=== PATIENT | female | born 1990 | race Caucasian/White ===

== ENCOUNTER 2022-08-14 12:20 | Outpatient (CLI) | payer BC, SELFPAY ==
--- NOTE | 2022-08-14 14:53 | DI.RAD_ITS ---
Exam(s) XR CHEST 2V PA LATERAL EXAM: XR CHEST 2V PA LATERAL CLINICAL HISTORY: COUGH--R05.8, ENSURE NO SIGNS OF PNEUMONIA. TECHNIQUE: 2D digital imaging was performed. COMPARISON: No exams were available for comparison FINDINGS: 2 views: Heart size is normal. The mediastinum is not widened. Lungs are clear. No infiltrates nor pleural effusions. IMPRESSION: No acute pulmonary findings. DATA REPOSITORY: RADIATION DOSE DELIVERED:
== END 2022-08-14 12:40 ==
PROVIDERS: Visit Provider Physician Assistant Medical
DX: R05.9 Cough, unspecified (principal)
CPT/HCPCS: 71046

== ENCOUNTER 2022-08-14 21:04 | Outpatient (REF) | payer BC, SELFPAY ==
[2022-08-16 10:36] LABS: COVID-19 RT-PCR UVMMC Result Negative (Negative)
== END 2022-08-14 21:05 | disposition home or self-care (01) ==
LOC: LBN 21:04
PROVIDERS: Visit Provider Physician Assistant Medical
DX: Z20.822 Contact with and (suspected) exposure to COVID-19 (principal); R05.8 Other specified cough
CPT/HCPCS: U0003

== ENCOUNTER 2024-03-23 09:49 | Emergency (ER) | payer OTHER, SELFPAY ==
[2024-03-23 09:57] VITALS: BP 124/65; PULSE 73; RESP 16; TEMP 36.7; O2SAT 98
--- NOTE | 2024-03-23 10:15 | DI.RAD_ITS ---
Exam(s) XR CHEST 2V PA LATERAL EXAM: XR CHEST 2V PA LATERAL CLINICAL HISTORY: right upper back pain, pain with deep breath. TECHNIQUE: 2D digital imaging was performed. COMPARISON: CR XR CHEST 2V PA LATERAL from 08/14/2022 FINDINGS: 2 views: Heart size is normal. The mediastinum is not widened. Lungs are clear. No infiltrates nor pleural effusions. IMPRESSION: No acute pulmonary findings.No significant change compared to 08/14/2022. DATA REPOSITORY: RADIATION DOSE DELIVERED:
--- NOTE | 2024-03-23 10:22 | W.ED.GENAD ---
Discharge Plan Disposition Patient Disposition: Home Condition: Improving Discharge Details Clinical Impression: Back strain Primary Care Provider: None,None ED Provider: Shaji Zhu Home Meds and New Rx's Prescriptions: New lidocaine [Lidoderm] 5 % adhesive patch,medicated 1 patch topical DAILY Qty: 15 0RF Rx Instructions: leave on most painful area for up to 12 hrs No Action naproxen 500 MG tablet 500 mg PO Q12H PRNQty: 20 0RF Discharge Instructions Instructions: Back Pain (ED) HPI General Date/Time Provider Initiated Documentation: 03/23/24 09:53. 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 Denies shortness of breath chest pain nausea vomiting or leg swelling. No exogenous estrogen use. No history of coronary artery disease or thromboembolic disease. Related Data Home Medications Medication Instructions Recorded Confirmed naproxen 500 mg tablet 500 mg PO Q12H PRN #20 tabs 04/23/13 lidocaine 5 % topical patch 1 patch topical DAILY #15 ea 03/23/24 (Lidoderm) Previous Rx's Medication Instructions Recorded naproxen 500 mg tablet 500 mg PO Q12H PRN #20 tabs 04/23/13 lidocaine 5 % topical patch 1 patch topical DAILY #15 ea 03/23/24 (Lidoderm) Allergies Allergy/AdvReac Type Severity Reaction Status Date / Time cetirizine HCl [From Zyrtec] Allergy Severe Hives Unverified 04/23/13 08:34 Penicillins Allergy Severe Anaphylaxsi Unverified 04/23/13 08:34 s Sulfa (Sulfonamide Allergy Intermediate Hives Unverified 04/23/13 08:34 Antibiotics) General Stated Complaint: Nk/Back Pain ANAI: 4 Review of Systems Narrative: Review of Systems Constitutional: negative Eyes: negative ENT: negative Cardiovascular: negative Respiratory: negative Gastrointestinal: negative : negative Musculoskeletal: Back pain Skin: negative Neurologic: negative Psych: negative Exam Narrative Exam Narrative: Physical Examination General: alert, awake, cooperative, resting comfortably, no acute distress HEENT: normocephalic, atraumatic; PERRL, EOM intact, conjunctiva normal; no nasal discharge; moist mucous membranes, oral and pharyngeal mucosa normal, tolerating secretions Neck: supple, trachea midline; full ROM Chest: normal to inspection Respiratory: normal respiratory effort, speaking in full sentences Skin: no lesions, rashes or trauma appreciated Neuro: AAOx3, normal speech, moving all extremities Psych: Appropriate mood and affect Course Vital Signs Vital signs: Vital Signs Temperature 36.7 C 03/23/24 09:57 Pulse 73 03/23/24 09:57 Respiratory Rate 16 03/23/24 09:57 Blood Pressure 124/65 03/23/24 09:57 Pulse Oximetry 98 03/23/24 09:57 Temperature 36.7 C 03/23/24 09:57 Temperature Source Tympanic 03/23/24 09:57 Pulse 73 03/23/24 09:57 Respiratory Rate 16 03/23/24 09:57 Blood Pressure 124/65 03/23/24 09:57 Blood Pressure Position Sitting 03/23/24 09:57 Pulse Oximetry 98 03/23/24 09:57 Oxygen Delivery Method Room Air 03/23/24 09:57 Oxygen Flow Rate 0 03/23/24 09:57 Pain Level 7 03/23/24 09:57 Lab/Test Results Lab/Test Results: POC- Test(urine) Negative Medical Decision Making 33-year-old female presents with right upper back discomfort, 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 Denies shortness of breath chest pain nausea vomiting or leg swelling. No exogenous estrogen use. No history of coronary artery disease or thromboembolic disease. Afebrile nontoxic no respiratory distress no hypoxia no tachycardia no tachypnea. Likely muscular strain low suspicion for ACS PE pneumothorax pneumonia nephrolithiasis or pyelonephritis. Trial of anti-inflammatory analgesia, screening x-ray and urinalysis. 11: 29 patient already feeling better after meds. X-ray and urine clear. Home care instructions and return precautions given Quality:SDOH Health Related Social Needs: No Data to Display PFSH All Active Problems (Updated 03/23/24 @ 11:30 by Shaji Zhu MD) Back strain (Acute) Social History Smoking/Tobacco Use Status: Current every day Smoking risk assessment performed?: Yes Alcohol Intake: current Alcohol Intake frequency: holidays/special occasions only Drug use: Never Substance use type: marijuana Do you feel safe at home: Yes Do you feel safe in your relationship?: Yes
[2024-03-23 10:34] LABS: Bilirubin Negative (Negative); Blood Trace-lysed (Negative); Clarity Clear (Clear); Glucose Negative (Negative); Ketones Negative (Negative); Leukocyte Esterase Negative (Negative); Nitrite Negative (Negative); Urobilinogen 0.2 mg/dL (Up to 0.2)
[2024-03-23] MEDS: Cyclobenzaprine 10 MG TAB PO (10:39)
[2024-03-23] MEDS: Lidocaine 5% Patch 1 PATCH TP (10:39)
[2024-03-23] MEDS: Ketorolac 15 MG/ML VIAL IM (10:39)
[2024-03-23 10:52] LABS: Bacteria Rare HPF (Negative); C & S Indicated? No; Casts Negative LPF (Negative); Crystals Negative HPF (Negative); Epithelial Cells Few HPF (Negative); Mucus Negative (Negative); RBC 0-2 HPF (0-2); WBC Negative HPF (0-5)
== END 2024-03-23 11:35 | disposition home or self-care (01) ==
PROVIDERS: Emergency Provider Emergency Medicine
DX: S29.012A Strain of muscle and tendon of back wall of thorax, initial encounter (principal); F17.210 Nicotine dependence, cigarettes, uncomplicated; X50.9XXA Other and unspecified overexertion or strenuous movements or postures, initial encounter; Y93.E9 Activity, other interior property and clothing maintenance
CPT/HCPCS: 81025; 96372; 99283; 71046; 81003; 81015; J1885

== ENCOUNTER 2025-08-10 15:11 | Outpatient (CLI) | payer BC, SELFPAY ==
[2025-08-10 16:06] LABS: Abs Immature Grans 0.01 10^3/uL (0.0-0.06); HCT 39.3 % (36.0-46.0); HGB 13.1 g/dL (11.2-15.7); Immature Grans % 0.2 %; MCH 29.4 pg (27.0-33.0); MCHC 33.3 % (32.0-36.0); MCV 88 fL (80-95); MPV 8.8 fL (8.0-11.0); Platelet Count 302 10^3/uL (130-400); RBC 4.46 10^6/uL (3.93-5.22); RDW 12.1 % (11.7-14.6); RDW-SD 39.3 fL; WBC 6.34 10^3/uL (4.4-10.8)
[2025-08-10 17:07] LABS: Hemoglobin A1C 5.2 % (<5.7)
[2025-08-10 17:23] LABS: ALT 20 U/L (14-59); AST 14 U/L (15-37); Albumin 3.6 g/dL (3.4-5.0); Alkaline Phosphatase 51 U/L (46-116); Anion Gap 7.9 mmol/L (3-11); BUN 11 mg/dL (7-18); Bilirubin, Total 0.3 mg/dL (0.2-1.0); CO2 27.1 mmol/L (21.0-32.0); Calcium 8.7 mg/dL (8.5-10.1); Calculated LDL 107 mg/dL (<100); Chloride 105 mmol/L (98-107); Cholesterol 176 mg/dL (<200); Estimated GFR 119.97 (mL/min/1.73m2); Glucose 91 mg/dL (74-106); HDL Cholesterol 60 mg/dL (>or=50); Potassium 4.3 mmol/L (3.5-5.1); Sodium 140 mmol/L (136-145); TSH (W/Ref FT4) 1.41 uIU/mL (0.36-3.74); Total Protein 6.4 g/dL (6.4-8.2); Triglyceride 47 mg/dL (<150)
[2025-08-12 10:24] LABS: HIV-1/2 Ag & Ab Screen Negative (Negative)
[2025-08-12 10:27] LABS: Hepatitis C Ab w Rflx HCV PCR Negative (Negative)
[2025-08-12 10:39] LABS: HBs Antibody, Quant 4.2 mIU/mL (See Note); Hepatitis B Surface Antigen Negative (Negative)
== END 2025-08-10 15:12 | disposition home or self-care (01) ==
LOC: LOS 15:12
PROVIDERS: PCP Nurse Practitioner Family; Referring Provider Nurse Practitioner Family; Visit Provider Nurse Practitioner Family
DX: F90.9 Attention-deficit hyperactivity disorder, unspecified type (principal); J45.909 Unspecified asthma, uncomplicated; N92.6 Irregular menstruation, unspecified; Z11.59 Encounter for screening for other viral diseases; Z11.4 Encounter for screening for human immunodeficiency virus [HIV]
CPT/HCPCS: 36415; 80053; 80061; 86704; 86706; 86803; 87340; 87389; 83036; 84443; 85025

== ENCOUNTER 2025-09-30 15:32 | Outpatient (REF) | payer BC, SELFPAY ==
--- NOTE | 2025-09-30 14:30 | PAPFT_PTH ---
PATIENT: Jayda Blackman LOC: [facility]#:[id number] AGE/SX: 34/F ROOM: RE09/30/[address]: CHRISTINA Velazco : 1990 BED: DIS: 09/30/2025 SPEC #: [id number] RECD: 09/30/25 16:33 STATUS: VIRGIE REQ #: [id number] MARYELLEN: 09/30/25 14:[address]: Kati Ash DEPT: [facility] Cytology RECD BY: Surekha Banda Tissues: 1 - CX/ENDOCX FOR PAP SMEARS Procedures: PAP THIN PREP/UVM Screening HPV DNA PROBE Comments: [id number] (HPV 16 & 18/45) (CHLAMYDIA/GC)
[2025-10-03 11:42] LABS: Chlamydia Result Negative (Negative); GC Result Negative (Negative)
== END 2025-09-30 15:33 | disposition home or self-care (01) ==
LOC: LBN 15:32
PROVIDERS: PCP Nurse Practitioner Family; Visit Provider Nurse Practitioner Family
DX: Z12.4 Encounter for screening for malignant neoplasm of cervix (principal)
CPT/HCPCS: 87491; 87591; 88142; 87624

== ENCOUNTER 2025-10-19 11:22 | Day surgery (SDC) | payer BC, SELFPAY ==
[2025-10-19 11:59] VITALS: BP 98/58; PULSE 50; RESP 16; TEMP 36.1; O2SAT 100
[2025-10-19] MEDS: Lactated Ringers 1,000 ML 80 ML IV (12:12)
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
[2025-10-19 13:02] VITALS: BMI 32.0
[2025-10-19 14:03] VITALS: BP 102/64; PULSE 63; RESP 14; TEMP 36.1; O2SAT 100
--- NOTE | 2025-10-19 14:07 | PDOC.DSDIS_ITS ---
Date of service: 10/19/25 Discharge Plan Disposition Patient Disposition: Home Condition: Good Discharge Details Reason For Visit: Rectal bleeding Attending Provider: Tamiko Haque Primary Care Provider: Kati Ash Home Meds and New Rx's Prescriptions: Continued lisdexamfetamine [Vyvanse] 30 mg capsule 30 mg PO DAILY MDD 30mg Qty: 28 0RF Discontinued bisacodyl [Dulcolax (bisacodyl)] 5 mg tablet,delayed release (DR/EC) 5 mg PO ONCE Qty: 4 0RF Rx Instructions: take per colonoscopy instructions polyethylene glycol 3350 17 gram/dose powder 238 g PO ONCE Qty: 238 0RF Rx Instructions: take per colonoscopy instructions Discharge Instructions Instructions: Anal fissure Additional Instructions: Your colonoscopy went well today. You did not have any polyps or abnormality of your colon. You did have evidence of an anal fissure which can be treated with topical medication. This is likely the cause of the bleeding. You should continue taking stool softners and avoid constipation or large stools. Please contact the general surgery office if you have any questions or concerns. 1. If tolerated, consume a soft, low fiber diet for 1-2 days. 2[address] Do not drive, drink alcohol, operate machinery, make critical decisions, or do activities that require coordination or balance for 24 hours. 3. Because air was put into your colon during the procedure, expelling air from your rectum (passing gas or farting) is normal. 4. You may not have a bowel movement for 1-3 days because of the colonoscopy prep. This is normal. 5. Go directly to the emergency room if you notice any of the following: Develop chills (warm to touch), or if you have a thermometer and your temperature is above 101 Difficulty breathing or difficultly swallowing Persistent vomiting Severe abdominal pain, other than gas cramps Severe chest pain Black, tarry stools Any bleeding – exceeding one tablespoon 6. Call your physician if the site where your intravenous was started becomes r ed, swollen, painful, and warm to touch. 7. Your physician has reviewed your pre-procedure medications. Please continue to take those medications as previously ordered. You will be given specific info rmation/education regarding any changes to your medications before leaving. Stand Alone Forms: Portal Information Activity:: Activity as Tolerated Diet:: As Tolerated Discharge Orders Discharge Orders: Discharge Order (Routine); Ordered 10/19/25 Ordered By: Tamiko Haque
--- NOTE | 2025-10-19 14:09 | W.ANESPOSTOP ---
Postoperative Evaluation Date, Time and Location Date Performed: 10/19/25 Time Performed: 14:09 Patient Location: Day Surgery Unit Vital Signs Most Recent Imported Vital Signs: Most Recent Vital Signs Temp Pulse Resp BP Pulse Ox 36.1 C L 63 14 102/64 100 10/19/25 14:03 10/19/25 14:03 10/19/25 14:03 10/19/25 14:03 10/19/25 14:03 Assessment Mental Status: Awake (Alert & Oriented to Patient Baseline) Airway and Respiratory Function: Patent airway with normal (patient baseline) respiratory exam Cardiovascular Function: Hemodynamically Stable Hydration Status: Adequately Hydrated Nausea & Vomiting: No Nausea or Vomiting Pain: Pt. Denies Any Pain Peripheral Nerve Block: Patient did not receive a nerve block
--- NOTE | 2025-10-19 14:11 | COLE_ITS ---
Date of service: 10/19/25 Time of Service: 14:11 Colonoscopy Report Date of procedure: 10/19/25 Pre-op diagnosis general: Rectal bleeding Post-op diagnosis procedure note: other (Anal fissure ) Procedure: Colonoscopy Surgeon: Tamiko Haque Anesthesia Type: General:No Airway Estimated blood loss (mL): 0 Pathology: none sent Complications: None Disposition: PACU Indications: Patient is a 34 yo female who presented to clinic for evaluation of rectal bleeding. She has no prior colonoscopy. Prep: Miralax/Dulcolax Procedure Start Time: 13:40 Procedure End Time: 13:58 Retraction Time: 11 Findings: Anterior midline anal fissure on exam. External hemorrhoids. Normal colonoscopy otherwise. Procedure Description: Informed consent was obtained. The patient was taken to the endoscopy suite and placed in the left lateral decubitus position. After adequate intravenous sedation, digital rectal exam was performed. There was evidence of an anterior midline fissure and external hemorrhoids. A colonoscope was inserted into the rectum and easily negotiated to the cecum. The ileocecal valve and appendiceal orifice were identified. The entire colonic mucosa was then carefully circumferentially inspected upon slow withdrawal of the scope and noted to be normal. Retroflexion in the rectum was unremarkable. The patient tolerated the procedure well with no complications. Postoperatively, the patient was transferred to the recovery room in stable condition. [place] Bowel Prep [place] Bowel Prep Right Colon: 3 Left Colon: 3 Transverse Colon: 3 Total Score: 9
[2025-10-19] MEDS: Normal Saline Flush 10 ML SYR IV (14:30)
[2025-10-19 14:32] VITALS: BP 97/66; PULSE 53; RESP 14; TEMP 36.3; O2SAT 100
== END 2025-10-19 14:46 | disposition home or self-care (01) ==
PROVIDERS: PCP Nurse Practitioner Family; Visit Provider Student in an Organized Health Care Education/Training Program
PROC: 0DJD8ZZ Inspection of Lower Intestinal Tract, Via Natural or Artificial Opening Endoscopic (ICD-10-PCS; CPT 45378; principal; 2025-10-19 13:00)
DX: K62.5 Hemorrhage of anus and rectum (principal); K60.2 Anal fissure, unspecified; K64.4 Residual hemorrhoidal skin tags
CPT/HCPCS: 45378; 81025; J2704